=== PATIENT | male | born 1980 | race Caucasian/White ===

== ENCOUNTER 2020-08-02 20:52 | Emergency (ER) | payer BC, SELFPAY ==
[2020-08-02 20:54] VITALS: BP 158/124; PULSE 66; RESP 18; TEMP 36.5; O2SAT 100
[2020-08-02 22:33] VITALS: BP 145/88; PULSE 70; RESP 18; O2SAT 98
[2020-08-02] MEDS: GLUCAGON FOR INJ 1 MG VIAL IV PUSH (22:43)
[2020-08-02 22:49] LABS: Basophils Absolute Auto 0.1 K/mm3 (0.0-0.1); Basophils Percent Auto 0.7 % (0.2-1.2); Eosinophils Absolute Auto 0.4 K/mm3 (0-0.3); Eosinophils Percent Auto 5.3 % (0-4.4); Hematocrit 46.7 % (42.0-52.0); Hemoglobin 16.6 g/dL (14.0-18.0); Immature Granulocyte Absolute 0.03 K/mm3 (0.00-0.031); Immature Granulocyte Percent A 0.4 % (0-0.5); Lymphocytes Absolute Auto 1.42 K/mm3 (0.9-3.2); Lymphocytes Percent Auto 19.6 % (18.3-44.2); Mean Corpuscular HGB Conc 35.5 g/dl (32-36); Mean Corpuscular Hemoglobin 30.7 pg (26-34); Mean Corpuscular Volume 86.5 fl (80-100); Mean Platelet Volume 9.9 fl (7.4-10.4); Monocytes Absolute Auto 0.5 K/mm3 (0.1-0.6); Monocytes Percent Auto 7.2 % (2.6-8.5); Neutrophils Absolute Auto 4.8 K/mm3 (1.3-6.7); Neutrophils Percent Auto 66.8 % (45.5-73.1); Platelet Count Result 192 k/mm3 (150-375); Red Cell Distribution Width 13.2 % (11.5-14.5); White Blood Count 7.2 K/mm3 (4.5-10.0)
--- NOTE | 2020-08-02 22:58 | ED.GENADULT ---
HPI - General Adult General Chief complaint: Unspecified Stated complaint: steak in throat Time Seen by Provider: 08/02/20 22:25 Source: patient History of Present Illness HPI narrative: Patient is a 40 y/o male complaining of food stuck in this throat. He states that he was eating a piece a steak approximately 3 hours ago and it got stuck in throat. He is not able to eat anything after that. There is no known alleviating or exacerbating factor. When he attempts to drink some water, it comes back up. Related Data Home Medications Medication Instructions Recorded Confirmed No Home Medications 08/02/20 08/02/20 Allergies Allergy/AdvReac Type Severity Reaction Status Date / Time No Known Allergies Allergy Verified 08/02/20 22:35 Review of Systems Constitutional: Constitutional: Denies chills, Denies fever(s), Denies headache(s) and Denies weakness Eyes: Eyes: Denies blurry vision ENT: Denies headache(s) and Denies neck pain Cardiovascular: Cardiovascular: Denies chest pain and Denies dyspnea Respiratory: Respiratory: Denies cough and Denies dyspnea Gastrointestinal: Gastrointestinal: Reports as per HPI, Denies abdominal pain, Denies diarrhea, Denies nausea and Denies vomiting Comments: unable to swallow Genitourinary: Genitourinary: Denies hematuria and Denies dysuria Musculoskeletal: Musculoskeletal: Denies back pain and Denies neck pain Neurologic: Denies headache(s) and Denies weakness Exam Const: General: no acute distress and well developed Orientation/consciousness: oriented to person, oriented to place, oriented to time and patient oriented x3 HENMT: Head: normocephalic Ears: external ears normal General nose exam: Normal external nose present Eyes: General: appearance normal, both eyes and all related structures Conjunctivae: conjunctivae normal Neck: Neck: normal visual inspection and full ROM Chest: Chest palpation & inspection: normal inspection of the chest and no tenderness Resp: Effort & Inspection: normal respiratory effort Auscultation: clear to auscultation bilaterally Cardio: Rate: regular rate Rhythm: regular rhythm GI: GI Palp: No abdominal tenderness and Yes Soft to palpation Skin: General skin exam: normal color and turgor normal Neuro: General: oriented to person, oriented to place, oriented to time and patient oriented x3 Cognition (Neuro): normal cognition Extrem: General: normal to inspection, full ROM and no pedal edema Psych: Appearance: grossly normal Mental Status: mental status grossly normal Affect: normal affect Course Reevaluation(s) Reevaluation #1: Rechecked. Patient feels better. He is able to tolerate oral intake and keep water down. Instructed patient to follow up with GI. Date: 08/02/20 Time: 23:56 Vital Signs Vital signs: Vital Signs Temperature 36.5 C 08/02/20 20:54 Pulse Rate 66 08/02/20 20:54 Respiratory Rate 18 08/02/20 20:54 Blood Pressure 158/124 H 08/02/20 20:54 Pulse Oximetry 100 08/02/20 20:54 Temperature 36.5 C 08/02/20 20:54 Pulse Rate 76 08/02/20 23:25 Respiratory Rate 16 08/02/20 23:25 Blood Pressure 133/86 08/02/20 23:25 Pulse Oximetry 100 08/02/20 23:25 Medical Decision Making Vital Signs Vital Signs: Vital Signs Temperature 36.5 C 08/02/20 20:54 Pulse Rate 66 08/02/20 20:54 Respiratory Rate 18 08/02/20 20:54 Blood Pressure 158/124 H 08/02/20 20:54 Pulse Oximetry 100 08/02/20 20:54 Temperature 36.5 C 08/02/20 20:54 Pulse Rate 76 08/02/20 23:25 Respiratory Rate 16 08/02/20 23:25 Blood Pressure 133/86 08/02/20 23:25 Pulse Oximetry 100 08/02/20 23:25 Lab Data Result diagrams: 08/02/20 22:42 08/02/20 22:42 Labs: Lab Results 08/02/20 08/02/20 Range/Units 22:42 22:42 WBC 7.2 (4.5-10.0) K/mm3 RBC 5.40 (4.6-6.20) M/mm3 Hgb 16.6 (14.0-18.0) g/dL Hct 46.7 (42.0-52.0) % MCV 86.5 (80-100) fl
[2020-08-02 23:00] LABS: Anion Gap 13 mmol/L (8-16); Blood Urea Nitrogen 10 mg/dL (9-20); Calcium 9.7 mg/dL (8.4-10.2); Carbon Dioxide 24 mmol/L (22-30); Chloride 103 mmol/L (98-107); Estimated Glomerular Filt Rate > 60; Glucose 95 mg/dL (75-110); Potassium 3.8 mmol/L (3.4-5.0); Sodium 140 mmol/L (137-145)
[2020-08-02 23:25] VITALS: BP 133/86; PULSE 76; RESP 16; O2SAT 100
== END 2020-08-03 00:12 | disposition home or self-care (01) ==
PROVIDERS: Emergency Provider Emergency Medicine
DX: T18.128A Food in esophagus causing other injury, initial encounter (principal)
CPT/HCPCS: 36415; 80048; 85025; 96374; 99284; J1610